=== PATIENT | female | born 1940 | race Caucasian/White ===

== ENCOUNTER 2017-11-27 05:26 | Day surgery (SDC) | payer OTHER ==
[~2017-11-27] VITALS: Ht 162.6 cm; Wt 80.7 kg
--- NOTE | ~2017-11-27 | S ---
[facility] [place] [address] SURGICAL PATH RPT PROCEDURE Name: TRINIDAD ESQUIVEL Room #: DEP [facility] M.R.#: [id number] Admission: 11/27/17 Date of : 42 Discharge: 11/27/17 Report #: [id number] Path Case #: [id number] PATHOLOGY REPORT COLLECTION DATE: 11/27/2017 RECEIVED DATE: 11/27/2017 SUBMITTING PHYS: Dr. Tk Isaac OTHER PHYS: Dr. Torin Pack SPECIMEN(S) RECEIVED: A.Left temporal artery biopsy * * * * * * * * * * * * FINAL DIAGNOSIS: Artery, left temporal artery, biopsy: - Negative for arteritis. - Focal calcifications identified within media. - Internal elastic lamina intact elsewhere. (IUV:berna; 11/28/2017) PATHOLOGIST: Nae Alvares M.D. REPORT ELECTRONICALLY SIGNED BY: Nae Alvares M.D. DATE/TIME: 11/28/2017 13:01 * * * * * * * * * * * * GROSS PATHOLOGY: Received in formalin labeled "Trinidad Esquivel, left temporal artery biopsy," is a tubular segment of poon-tiwari tubular soft tissue measuring 1.8 cm in length and 0.2 cm in diameter. The tissue is submitted in toto in cassette A1. (SDY; 11/27/2017) CLINICAL HISTORY: Central artery occlusion INITIAL CPT CODE(S): A; 99099 Professional services performed by [facility] at [facility] [place] [address] [address] Technical services performed by [facility] at [address] [place] [address], [facility] [address], [place] [address]. [facility] [address] [place] [address] SURGICAL PATH RPT PROCEDURE Name: TRINIDAD ESQUIVEL Room #: DEP [facility] Rebekah#: [id number] Admission: 11/27/17 Date of : 42 Discharge: 11/27/17 Report #: [id number] Path Case #: [id number] [facility] [address] PHONE: [phone] DIRECTOR: Jeevan Allred M.D. * * * END OF REPORT * * *
--- NOTE | ~2017-11-27 | O ---
[facility] [place] [address] OPERATIVE REPORT Name: TRINIDAD ESQUIVEL Room #: DEP [facility] M.R.#: [id number] Admission: 11/27/17 Attend Phys: Tk Isaac MD Discharge: 11/27/17 Date of : 42 Report #: [id number] THIS REPORT FOR: //name// CC: Torin Byrd DATE OF SERVICE: 11/27/2017 PATIENT OF: Dr. Tk Isaac and Dr. Torin Pack. PREOPERATIVE DIAGNOSIS: Possible giant cell arteritis. POSTOPERATIVE DIAGNOSIS: Possible giant cell arteritis. PROCEDURE: Left temporal artery biopsy. SURGEON: Tk Isaac MD ANESTHESIA: Local. The patient was brought to the operating room and placed on operative table in the supine position. Left temporal area was prepped and draped in a sterile fashion. Skin and subcutaneous tissue were then infiltrated with 1% Xylocaine plain. Skin incision was performed using #15 scalpel blade. Hemostasis obtained using electrocautery. Dissection was carried down through subcutaneous tissue to this left temporal artery, which was dissected free, ligated proximally and distally with a 4-0 silk tie and excised using the fine dissecting scissors and sent as specimen to pathology. Meticulous hemostasis was checked and obtained in the area using the electrocautery. Deep and superficial subcutaneous tissue was then reapproximated using simple interrupted 4-0 Vicryl suture and the skin then closed with a running 4-0 subcuticular Vicryl stitch. The wound was then dressed with Mastisol, quarter inch Steri-Strips, Telfa and tape. The patient was then taken to the preoperative area, awake, alert and in good condition. Estimated blood loss was less than 5 mL and the patient tolerated the procedure well. All sponge, lap, and instrument counts correct times 2. <ELECTRONICALLY SIGNED> By: Tk Isaac MD 11/27/17 1615 [id number] Tk Isaac MD /nt
[~2017-11-27 05:26] MED LIST: AMARYL2 MG PO; AMLODIPINE BESYL5 MG PO; ASPIRIN81 M2; CALCIUM 600 +1 EA11; CRESTOR10 MG; FISH OIL 1,0001 EAC8; GLUCOPHAGE1000 MG; GLUCOSAMINE HC500 MG; IBUPROFEN 200200 M1 PO; LISINOPRIL2.5 M1 PO; MAGNESIUM GLUC500 M1; MULTI-VITAMIN1 EAC5; NITROGLYCERIN0.4 MG; OCUVITE TABLET1 EAC1 PO; PREDNISONE 20 M20 M1 PO; VITAMIN D1000 UNI1; VITAMIN K100 MCG; VITAMINC500; ZANTAC 150MG T150 M1 PO; [UNRECOGNIZED DRUG - OTHER]; [UNRECOGNIZED DRUG - OTHER]
[2017-11-27 08:15] VITALS: BP 152/68
[2017-11-27 09:30] VITALS: BP 152/68
== END 2017-11-27 09:30 | disposition home or self-care (01) ==
LOC: OR 05:26 → TBA 05:26 → OR 09:30
DX: I70.8 Atherosclerosis of other arteries (principal); I10 Essential (primary) hypertension; E11.9 Type 2 diabetes mellitus without complications; I25.2 Old myocardial infarction; K21.9 Gastro-esophageal reflux disease without esophagitis; Z98.41 Cataract extraction status, right eye; Z98.42 Cataract extraction status, left eye; Z96.1 Presence of intraocular lens; Z98.890 Other specified postprocedural states; Z88.8 Allergy status to other drugs, medicaments and biological substances; Z95.5 Presence of coronary angioplasty implant and graft; Z79.899 Other long term (current) drug therapy; Z79.82 Long term (current) use of aspirin
CPT/HCPCS: 50010; 50101; 50386; 56525; 56805; 57092